=== PATIENT | male | born 1995 | race Caucasian/White ===

== ENCOUNTER 2017-07-22 18:03 | Emergency (ER) | payer OTHER ==
[~2017-07-22] VITALS: Ht 177.8 cm; Wt 79.6 kg
[2017-07-22 18:11] VITALS: O2SAT 94
[2017-07-22 18:12] VITALS: TEMP 37; Ht 177.8 cm; Wt 79.6 kg
[2017-07-22 19:17] LABS: BUN/CREATININE RATIO 9.6 (10-20); CALCIUM 8.5 mg/dl (8.5-10.1); CREATININE 0.81 mg/dl (0.60-1.40); POTASSIUM 3.9 mmol/L (3.5-5.1)
[2017-07-23 02:42] VITALS: BP 153/109; PULSE 92; O2SAT 94
--- NOTE | 2017-07-24 13:58 | EMERGENCY ROOM VISIT NOTE ---
ED Visit Note First contact with patient: 18:05 CHIEF COMPLAINT: Altered mental status from Alcohol overdose HISTORY OF PRESENT ILLNESS: This 21 year old male patient presents to the emergency department via ambulance for evaluation of altered mental status, presumably from alcohol intoxication. The patient was observed to be stumbling down the road by local police at the [facility] football game. The patient admitted to drinking alcohol but was very agitated with police presence. He had a breathalyzer on scene at 268 and was brought to the ER for further evaluation. The patient denies injury or pain. He admits to drinking but denies drug use. He states that he does not take medication on regular basis. REVIEW OF SYSTEMS: Review of systems was somewhat limited secondary to patient' s presumed alcohol intoxication status. Review of systems was performed to the best of our ability and reperformed as the patient began to sober up. All other systems were reviewed and are negative. ALLERGIES: See EMR MEDICATIONS: See EMR PMH: No chronic medical disease SOCIAL HISTORY: Student who lives locally PHYSICAL EXAM VITALS: Vitals are noted on the nurse's note and reviewed by myself. Vital signs stable. GENERAL: White male, who is in no acute distress and resting comfortably. Patient is visibly altered and smells of alcohol. HEAD: Normocephalic atraumatic. EARS: External ear normal. External auditory canals clear, tympanic membranes pearly isaac without erythema or effusion bilaterally. EYES: Pupils equal round and reactive to light and accommodation. Conjunctivae without injection, sclerae without icterus. Extraocular movements intact. NOSE: Patent, turbinates without inflammation or discharge. MOUTH: Mucous membranes moist. Tonsils are not enlarged. Pharynx without erythema, blood, vomitus, or exudate. Uvula midline. Airway patent. NECK: Supple without nuchal rigidity. No lymphadenopathy. Cervical spine is nontender. HEART: Regular rate and rhythm without murmurs gallops or rubs. LUNGS: Clear to auscultation bilaterally without wheezes, rales or rhonchi. No retractions or accessory muscle use. ABDOMEN: Positive normal bowel sounds x 4. Soft, nontender, without masses or organomegaly. No guarding or rebound tenderness. MUSCULOSKELETAL: No muscle atrophy, erythema, or edema noted. Gross motor function intact to all extremities. NEURO: Patient was alert to person but not place or time. They appear with altered mental status. SKIN: The skin was without rashes, erythema, edema, or bruising. No Tenting of the skin. EMERGENCY DEPARTMENT COURSE: Physical exam and history was performed. Nursing notes and EMR were reviewed. The patient appears to be altered on my examination. I suspect this is from an alcohol overdose. Conservative care measures and aspiration precautions were instituted. The patient was placed on e merchant and watched during the patient's stay. The patient was placed in a prone position. Blood work was obtained and was reviewed. The patient's blood alcohol level was 353. This appears to be the primary cause of the altered status. Patient was reevaluated multiple times throughout the course of their emergency department stay. Over time the patient did sober up and was able to talk, walk , and drink fluids without difficulty. The patient was felt stable for discharge home. The patient was given alcohol intoxication handouts. The patient was discharged home in stable condition when sober. Differential diagnosis: Etiologies such as alcohol intoxication, metabolic, infection, hypoglycemia, electrolyte abnormalities, cardiac sources, intracerebral event, toxicologic, neurologic, as well as others were entertained. DIAGNOSIS: Acute alcohol intoxication Current/Historical Medications Unable to Obtain Active Prescriptions or Reported Meds Vital Signs Date Time Temp Pulse Resp B/P (MAP) Pulse Ox O2 Delivery O2 Flow Rate FiO2 07/23/17 02:42 92 20 153/109 94 07/23/17 02:01 149/106 07/23/17 01:53 88 96 07/23/17 01:18 91 96 07/23/17 01:01 135/96 07/23/17 00:48 86 97 07/23/17 00:43 83 97 Room Air 07/23/17 00:13 95 17 97 07/23/17 00:01 145/111 07/22/17 23:43 97 12 96 07/22/17 23:31 127/77 07/22/17 23:22 94 07/22/17 23:13 94 15 97 07/22/17 23:01 127/80 07/22/17 22:43 98 14 97 07/22/17 22:17 123/69 07/22/17 22:13 108 17 07/22/17 21:43 93 15 94 07/22/17 21:31 121/67 07/22/17 21:13 94 15 93 07/22/17 21:08 98 16 93 Room Air 07/22/17 21:01 116/69 07/22/17 20:54 126/76 07/22/17 20:08 97 16 97 07/22/17 20:03 118 18 94 07/22/17 20:01 124/58 07/22/17 19:33 103 15 98 07/22/17 19:31 119/63 07/22/17 19:03 103 16 97 07/22/17 19:01 124/68 07/22/17 18:47 103 18 134/80 98 Nasal Cannula 2.0 07/22/17 18:46 90 Room Air 07/22/17 18:33 107 18 91 07/22/17 18:31 134/80 07/22/17 18:23 119 07/22/17 18:12 37.0 115 18 150/98 94 Room Air 07/22/17 18:11 94 Room Air 07/22/17 18:08 149/97 Laboratory Results 07/22/17 18:14 Test 07/22/17 18:14 Anion Gap 5.0 mmol/L (3-11) Est Creatinine Clear Calc Drug Dose 150.2 ml/min Estimated GFR () 148.3 Estimated GFR (Non- 127.9 BUN/Creatinine Ratio 9.6 (10-20) Calcium Level 8.5 mg/dl (8.5-10.1) Chemistry Specimen Hemolysis Ethyl Alcohol mg/dL 353.0 mg/dl (0-3) Departure Information Prescriptions Unable to Obtain Active Prescriptions or Reported Meds Referrals No Doctor, Assigned (PCP) Patient Instructions [facility]
== END 2017-07-23 02:44 | disposition home or self-care (01) ==
LOC: EDBD 18:03 → C.EDC 18:06
DX: F10.129 Alcohol abuse with intoxication, unspecified (principal)

== ENCOUNTER 2017-09-14 23:46 | Emergency (ER) | payer OTHER ==
[~2017-09-14] VITALS: Ht 177.8 cm; Wt 77.6 kg
[2017-09-14 23:51] VITALS: TEMP 37.1; Ht 177.8 cm; Wt 77.6 kg
--- NOTE | 2017-09-15 00:07 | EMERGENCY ROOM VISIT NOTE ---
History Report prepared by Neville: Jf Young Under the Supervision of: Dr. Ralph Quintero M.D. First contact with patient: 23:53 Chief Complaint: ALCOHOL OVERDOSE Stated Complaint: ALCOHOL OVERDOSE/FACIAL INJURY Nursing Triage Summary: Patient fell face first into a wall. Patient had a bloody nose. Unsure LOC. Found at [facility] History of Present Illness The patient is a 22 year old male who presents to the Emergency Room with complaints of an episode of alcohol intoxication beginning today. Per EMS, the patient fell face first into a wall while intoxicated. They note that when they found the patient, he had a blood nose. The patient denies any neck pain and abdominal pain. HPI limited secondary to alcohol intoxication. Source of History: patient, EMS History Limited By: intoxication Onset: today Position: other (global) Quality: other (alcohol intoxication) Timing: other (an episode) Associated Symptoms: No abdominal pain Review of Systems ROS limited secondary to alcohol intoxication. Past Medical & Surgical Medical Problems: (1) No chronic problems Family History No pertinent family history stated. Social History Smoking Status: Unknown if Ever Smoked Alcohol Use: heavy Marital Status: single Occupation Status: [employer] student Current/Historical Medications No Active Prescriptions or Reported Meds Allergies Coded Allergies: No Known Allergies (Unverified , 09/15/17) Physical Exam Vital Signs Date Time Temp Pulse Resp B/P (MAP) Pulse Ox O2 Delivery O2 Flow Rate FiO2 09/15/17 06:39 85 09/15/17 06:15 98 Room Air 09/15/17 06:05 87 15 09/15/17 05:35 89 15 09/15/17 05:05 82 15 09/15/17 04:35 91 16 95 Room Air 09/15/17 04:30 94 13 95 Room Air 09/15/17 04:00 91 18 113/64 09/15/17 03:31 116/61 09/15/17 03:30 91 18 09/15/17 03:19 91 09/15/17 03:11 121/63 09/15/17 02:14 94 16 119/68 92 Room Air 09/15/17 00:47 95 16 141/92 95 Room Air 09/14/17 23:53 100 09/14/17 23:51 37.1 97 16 127/80 96 Room Air Physical Exam GENERAL: Patient is heavily intoxicated. Smells of alcohol. Well appearing and in no acute distress. HEAD: No evidence of Trauma. AT/NC EYES: Injunctive conjunctiva. Normal EOM. Pupils equal/reactive. ENT: Mucous membranes moist, no nasal congestion. Tenderness to palpation and bruising over nose, dried blood in bilateral nares NECK: No step-offs, no adenopathy, no meningismus, trachea is midline. LUNGS: No dyspnea. Clear to auscultation and equal bilaterally. No wheeze, no rhonchi. HEART: Regular rate and rhythm. No murmurs, rubs, gallops appreciated. ABDOMEN: Soft, nontender, bowel sounds positive, no masses appreciated, no peritonitis. BACK: No midline tenderness, no CVA tenderness EXTREMITIES: Normal motion all extremities, no cyanosis, no edema. NEUROLOGIC: Intoxicated. No acute motor or sensory deficits, no focal weakness , cranial nerves grossly intact. Mumbles periodically, awake and looking around room periodically. SKIN: No rash, no jaundice, no diaphoresis. Medical Decision & Procedures ER Provider Diagnostic Interpretation: Radiology results and stated below per my review and radiologist interpretation: CT HEAD: Motion artifact No evidence of intracranial hemorrhage, mass effect or calvarial fracture Ventricles are within limits and midline Visualized paranasal sinuses and mastoids are clear Radiologist: Baltazar Ferreira M.D. CT C SPINE: Motion artifact limits the evaluation No evidence of fracture or malalignment Radiologist: Baltazar Ferreira M.D. Laboratory Results 09/15/17 00:04 Test 09/15/17 00:04 Anion Gap 8.0 mmol/L (3-11) Est Creatinine Clear Calc Drug Dose 149.0 ml/min Estimated GFR () 147.2 Estimated GFR (Non- 127.0 BUN/Creatinine Ratio 7.8 (10-20) Calcium Level 8.1 mg/dl (8.5-10.1) Ethyl Alcohol mg/dL 392.0 mg/dl (0-3) Laboratory results as reviewed by me. ED Course 2355: The patient was evaluated in room A4. A complete history and physical exam was performed. Medical Decision Differential: Alcohol Intoxication, Drug Intoxication, Electrolyte Abnormality, Trauma, Intracranial Event, Toxicological, Excited Delirium, Serotonin Syndrome , amongst other pathologies entertained. 22 yr old intoxicated male brought in by EMS after face planting against a wall at local apartment complex. Left face/head and nose contusion/abrasions thus with ETOH felt necessary to do CT head/neck which were fortunately negative.. Protecting airway and breathing comfortably throughout ED stay. EtOH positive. Monitored and discharged when awake, alert, oriented and denies any complaints. He denies nasal pain nor discomfort. I was very clear to patient about my concerns for his multiple ED visits for ETOH intoxication, especially given head injury he sustained tonight, as well as the very high ETOH level he had on arrival. I advised he must stop drinking alcohol. Impression Primary Impression: Alcohol abuse Additional Impressions: Alcoholic intoxication Head injury, closed Contusion of face Scribe Attestation The scribe's documentation has been prepared under my direction and personally reviewed by me in its entirety. I confirm that the note above accurately reflects all work, treatment, procedures, and medical decision making performed by me. Departure Information Dispostion Home / Self-Care Prescriptions No Active Prescriptions or Reported Meds Referrals [facility] Patient Instructions My [facility] Additional Instructions You were evaluated in emergency department for intoxication. This is a sign of Alcohol Abuse and should not be taken lightly. You had a blood alcohol level that was significantly elevated. This is the third time in the last 2 years you have been in the Emergency Department intoxicated. You are exhibiting evidence of alcoholism. Tonight you sustained trauma to your head/face and thus it was necessary to do CT Scans which were fortunately unremarkable. You may have small fracture of your nose. Over the next 24 hours keep well hydrated and eat light meals. Don't drink any more alcohol. This is important. Please discuss this visit with your Primary Care Provider, [facility] and/or your loved ones. Unless an exceptional circumstance, the Hospital DOES NOT contact anyone DURING your visit, nor is your Protected Medical Information released to anyone without your approval/request. This means we do not contact your Parents, the Police, etc. However, you will likely receive a bill from the Hospital and/or your Insurance company, which will usually be sent to the Primary Policy Pagan (often one's Parents). Furthermore, as a student, your visit report will likely be sent to [facility] as your primary care provider, unless other Provider listed. If your incident was on campus, or if the Police were involved, they will often contact the [place] to make them aware of what happened. Often this will result in you being required to take Alcohol Education classes (ie BASICS class) . Please see information given to you at discharge regarding contact for this. If the Police were involved you will likely be cited for public intoxication. Please contact either [facility] Police or the [place] Police for further information. Call 911 or return to Emergency Department if you develop: Passing out, difficulty breathing, many episodes of vomiting, blood in vomit or stool, abdominal pain, fevers, or other severe symptoms. We are always here to help if you feel you need further evaluation or treatment. Problem Qualifiers
[2017-09-15 00:40] LABS: BUN/CREATININE RATIO 7.8 (10-20); CALCIUM 8.1 mg/dl (8.5-10.1); CREATININE 0.81 mg/dl (0.60-1.40); POTASSIUM 3.2 mmol/L (3.5-5.1)
--- NOTE | 2017-09-15 06:47 | DIAGNOSTIC IMAGING REPORT ---
HEAD WITHOUT CONTRAST (CT) CT DOSE: 1676.99 mGy.cm HISTORY: Trauma head injury, intoxicated TECHNIQUE: Multiaxial CT images of the head were performed without the use of intravenous contrast. A dose lowering technique was utilized adhering to the principles of ALARA. Comparison: None. Findings: The paranasal sinuses and mastoid air cells are clear. The calvarium and skull base are intact. The ventricles and sulci are within normal limits. There is no mass, hematoma, midline shift, or acute infarct. Impression: No acute intracranial abnormality. Nondisplaced fracture tip nasal bones The above report was generated using voice recognition software. It may contain grammatical, syntax or spelling errors. Electronically signed by: Bradley Hutchison M.D. 09/15/2017 6:45 AM Dictated Date/Time: 09/15/2017 6:45 AM
--- NOTE | 2017-09-15 06:53 | DIAGNOSTIC IMAGING REPORT ---
CERVICAL SPINE W/O CT DOSE: HISTORY: Trauma head injury, intoxicated TECHNIQUE: Multiaxial CT images of the cervical spine were performed and reformatted in the sagittal and coronal plane without the use of contrast. A dose lowering technique was utilized adhering to the principles of ALARA. COMPARISON: None. FINDINGS: No fractures. No subluxation. Prevertebral soft tissues and the C1-C2 interval are intact. No pneumothorax. Motion artifact C5 on the resolution. Posterior elements. Be intact. IMPRESSION: Motion artifact. No acute bony abnormality within this limitation. The above report was generated using voice recognition software. It may contain grammatical, syntax or spelling errors. Electronically signed by: Bradley Hutchison M.D. 09/15/2017 6:51 AM Dictated Date/Time: 09/15/2017 6:47 AM
[2017-09-15 10:45] VITALS: BP 112/66; PULSE 108; O2SAT 98
== END 2017-09-15 10:45 | disposition home or self-care (01) ==
LOC: EDBD 23:46 → C.EDA 23:47
DX: F10.129 Alcohol abuse with intoxication, unspecified (principal); S09.90XA Unspecified injury of head, initial encounter; S00.33XA Contusion of nose, initial encounter; W22.8XXA Striking against or struck by other objects, initial encounter; Y90.8 Blood alcohol level of 240 mg/100 ml or more